=== PATIENT | male | born 1965 | race Caucasian/White ===

== ENCOUNTER 2016-08-06 10:47 | Outpatient (CLI) ==
[2016-05-06 03:38] VITALS: BMI 33.3
[2016-08-06 11:19] LABS: CHOL/HDL RATIO 3.2 (4.5-6.4)
== END 2016-08-06 10:48 | disposition home or self-care (01) ==
LOC: LAB 10:47
PROVIDERS: ATTEND Physician Assistant Medical
DX: E78.5 Hyperlipidemia, unspecified (principal); E11.9 Type 2 diabetes mellitus without complications
CPT/HCPCS: 36415; 80061; 83036

== ENCOUNTER 2016-08-20 10:17 | Outpatient (CLI) ==
[2016-05-06 03:38] VITALS: BMI 33.3
--- NOTE | 2016-08-20 11:22 | CT ---
EXAM: CT lumbar spine without contrast HISTORY: Low back pain COMPARISON: 02/22/2016 TECHNIQUE: CT lumbar spine performed without intravenous contrast. Coronal and sagittal reformatte d images obtained. FINDINGS: There is posterior spinal fusion at L5-S1. Hardware appears intact. There is a 5 mm anterolisthesi s of L5 on S1 that appears unchanged. There is interbody spacer. There is endplate degenerative carola nge L5-S1 that appears unchanged. There is multilevel marginal osteophyte formation. Multilevel lauri inal osteophyte formation. Mild multilevel intervertebral disc space narrowing at the nonoperative levels. Visualized sacroiliac joints intact with mild degenerative change. No fracture. There is a 1.6 cm right adrenal nodule measuring 13 HU. Visualized liver decreased in attenuation. Small hia osvaldo hernia. The aorta and is normal in caliber. Mild posterior subcutaneous scarring/stranding. T12-L1: No central canal or neural foraminal narrowing. L1-L2: Posterior disc osteophyte complex causing mild central canal narrowing. L2-L3: No central canal or neural foraminal narrowing. L3-L4: No central canal or neural foraminal narrowing. L4-L5: Posterior disc osteophyte complex and facet arthrosis causing mild to moderate bilateral neur al foraminal narrowing. Central canal partially obscured due to streak artifact without definite raya tral canal narrowing. L5-S1: Postsurgical change with fusion and right hemilaminectomy. Anterolisthesis. Central canal obs cured secondary to streak artifact without definite central canal narrowing. Posterior disc osteophy te complex and facet arthrosis with probably moderate bilateral neural foraminal narrowing IMPRESSION: 1. Posterior spinal spinal fusion L5-S1. No acute abnormality lumbar spine. Grade 1 anterolisthes is of L5 on S1. 2. Chronic discogenic degenerative disease and facet arthrosis. Please see segmental analysis. 3. 1.6 cm right adrenal nodule MRI 07/22/2013 suggested adrenal nodule and this is probably grossl y unchanged in size, suggesting a benign etiology. 4. Hepatic steatosis
== END 2016-08-20 10:18 | disposition home or self-care (01) ==
LOC: RAD 10:17
PROVIDERS: ATTEND Neurological Surgery
DX: M54.5 Low back pain (principal)

== ENCOUNTER 2017-05-23 14:06 | Outpatient (CLI) ==
[2016-05-06 03:38] VITALS: BMI 33.3
--- NOTE | 2017-05-23 15:18 | CT ---
EXAM: CT of the lumbar spine without contrast History: Lower back pain. Comparison: Lumbar spine CT 08/20/2016 Technique: Multiplanar CT images through the lumbar spine were obtained without the administration o f IV contrast Findings: Stable small right adrenal nodule. Degenerative changes of the bilateral sacroiliac joint s with sclerosis and bridging osteophyte on the right. Stable posterior fusion hardware at L5-S1. Stable grade 1 anterolisthesis of L5 on S1. No acute fra cture. No active subluxation. T12-L1: No significant disc bulge, central canal stenosis or bony neural foraminal narrowing. L1-L2: Small posterior disc osteophyte complex with no significant bony central canal stenosis or [place] neural foraminal narrowing. L2-L3: No significant disc bulge, central canal stenosis or bony neural foraminal narrowing. L3-L4: Small disc bulge effacing the anterior thecal sac with no significant bony central canal sten osis. Mild bilateral bony neural foraminal narrowing secondary to ligamentous and facet hypertrophy. L4-L5: Limited evaluation due to streak artifact from hardware. No significant bony central canal s tenosis. Mild to moderate bilateral bony neural foraminal narrowing secondary to ligamentous and fac et hypertrophy. L5-S1: Limited evaluation due to the streak artifact from hardware. No significant bony central can al stenosis. Moderate to severe bilateral bony neural foraminal narrowing secondary to ligamentous a nd facet hypertrophy, not significantly changed compared to prior study. Impression: 1. No acute osseous abnormality of the lumbar spine. 2. Stable posterior fusion hardware. 3. Stable grade 1 anterolisthesis of L5 on S1. 4. Level by level analysis as detailed above not significantly changed compared to the prior study. 5. Degenerative changes of bilateral sacroiliac joints, not significantly changed compared to the pr ior study. 5. Stable right adrenal adenoma.
== END 2017-05-23 14:07 | disposition home or self-care (01) ==
LOC: RAD 14:06
PROVIDERS: ATTEND Neurological Surgery
DX: M54.5 Low back pain (principal)

== ENCOUNTER 2018-09-26 11:26 | Outpatient (CLI) | payer OTHER ==
[2016-05-06 03:38] VITALS: BMI 33.3
--- NOTE | 2018-09-26 14:31 | DI ---
EXAM: CERVICAL SPINE, 3 VIEWS HISTORY: Degenerative disc disease and neck pain. No scoliosis. Lateral masses of C1 and C2 are normally aligned and the odontoid process is intact. Lateral projections reveal slight reversal of lordosis likely related to patient position. There is no spondylolisthesis or fracture. Mild to moderate degenerative changes mid spine inferiorly. IMPRESSION: 1. Degenerative changes of the lower spine are mild to moderate.
--- NOTE | 2018-09-27 10:45 | MRI ---
MRI of the lumbar spine HISTORY: Low back pain with radiation to both lower extremities, right greater than left. COMPARISON: 09/08/2015. CT 08/20/2016. PROCEDURE: Multiplanar, multisequence MRI protocol including sagittal T1-weighted, sagittal T2-weigh grazyna, sagittal inversion recovery, coronal T2-weighted, axial T1-weighted and axial T2-weighted sequen emelyn. The patient was injected with 20 ml of Dotarem after which additional sagittal and axial images were obtained. FINDINGS: There are five non-rib bearing lumbar vertebrae. The current examination again demonstrate s evidence of previous discectomy and fusion at L5-S1 using transpedicular screws and interconnecting rods and a disc space implant. There is an accompanying right hemilaminectomy. There is a residual approximately 3-4 mm anterolisthesis of L5 with respect to S1. Vertebral alignment demonstrate stra ightening of upper lumbar lordosis and a modest dextroconvex curvature apex at L4-5 which may be posi tional. Vertebral body height is unchanged from the prior examination. Marrow signal is within norm al limits for age. The intervertebral discs are essentially unchanged from prior examination. There is moderate loss of disc height, desiccation and prominent ventral spondylosis at T12-L1 and L1-L2. There is loss of disc height and postsurgical changes at L5-S1. The conus medullaris appears normal in position and configuration and signal. The caliber of the spinal canal is intrinsically within n ormal limits. The prevertebral and paraspinous soft tissues appear to be within normal limits. Post contrast images demonstrate no abnormal enhancement. Segmental analysis: T12-L1: There is a minimal disc bulge at this level. The spinal canal is not significantly narrowed. The subarticular spaces and lateral recesses are not significantly narrowed. The neural foramina a re not stenosed. The conus crosses this level. L1-L2: There is a broad-based disc/osteophyte complex impressing the ventral thecal sac at this level . The spinal canal is not significantly narrowed. The subarticular spaces and lateral recesses are not significantly narrowed. The neural foramina are not stenosed. The conus terminates above this l evel behind the body of L1. L2-L3: There is a minimal broad based disc bulge at this level. The spinal canal is not significantl y narrowed. The subarticular spaces and lateral recesses are not significantly narrowed. The neural foramina are not stenosed. L3-L4: There is a minimal broad-based disc bulge at this level. The spinal canal is not significantl y narrowed. The subarticular spaces and lateral recesses are not significantly narrowed. The neural foramina are not stenosed. L4-L5: There is a minimal broad-based disc bulge at this level. The spinal canal is not significantl y narrowed. The subarticular spaces and lateral recesses are not significantly narrowed. There is m ild right and mild to moderate left foraminal stenosis due to facet arthropathy and disc intrusion. L5-S1: The patient is post discectomy and fusion at this level. The central canal remains patent. T here is modest impression of the right dorsolateral thecal sac associated with facet arthropathy. Th e subarticular spaces and lateral recesses are not significantly narrowed. There is moderate to mode rately severe foraminal stenosis associated with anterolisthesis, loss of disc height, facet arthropa thy and disc/osteophyte intrusion. IMPRESSION: 1. The current examination demonstrates stable postsurgical changes at L5-S1 consisting of discectom y and fusion using transpedicular screws and interconnecting rods and a solitary disc space implant. The patient has had an associated right hemilaminectomy. There is a stable associated grade 1 anter olisthesis. 2. The lumbar vertebrae at the remaining levels are normal in height and signal. There is evidence of loss of disc height, desiccation and spondylosis at T12-L1 and L1-L2. The L2-3 through L4-5 discs appear normal in height and signal. 3. The central canal appears adequately patent at all lumbar levels as seen previously. 4. There is mild right and mild to moderate left foraminal stenosis at L4-5 and moderate to moderate ly severe bilateral foraminal stenosis at L5-S1. Note that the L5-S1 level is partially obscured by susceptibility artifact from the patient's fusion hardware. 5. No abnormal enhancement is identified. 6. Additional details are contained in the report.
== END 2018-09-26 11:27 | disposition home or self-care (01) ==
LOC: RAD 11:26
PROVIDERS: ATTEND Pain Medicine Interventional Pain Medicine
DX: M50.320 Other cervical disc degeneration, mid-cervical region, unspecified level (principal); M50.321 Other cervical disc degeneration at C4-C5 level; M50.322 Other cervical disc degeneration at C5-C6 level; M50.33 Other cervical disc degeneration, cervicothoracic region; M47.812 Spondylosis without myelopathy or radiculopathy, cervical region; M47.813 Spondylosis without myelopathy or radiculopathy, cervicothoracic region; M48.061 Spinal stenosis, lumbar region without neurogenic claudication; M51.36 Other intervertebral disc degeneration, lumbar region; M51.37 Other intervertebral disc degeneration, lumbosacral region; M47.816 Spondylosis without myelopathy or radiculopathy, lumbar region; M47.817 Spondylosis without myelopathy or radiculopathy, lumbosacral region; M96.1 Postlaminectomy syndrome, not elsewhere classified
CPT/HCPCS: 36415; 82565

== ENCOUNTER 2019-01-06 12:16 | Emergency (ER) | payer OTHER ==
[2019-01-06 12:22] VITALS: BP 139/90; TEMP 96.4; BMI 34.3
--- NOTE | 2019-01-06 14:18 | ED.PDOC ---
General ED Provider: Dr. WENDIE FARRELL Chief Complaint: Bite Stated Complaint: 53 y old pleasant gentleman with nk insect bite in scalp parietal area and on left gluteal surface.Partialy secondarily infected,No akllewrgies,Controled dM, Time Seen by Physician: 12:45 Mode of Arrival: Walk-In Information Source: Patient Exam Limitations: No limitations Primary Care Provider: LAUREN MADRIGAL Nursing and Triage Documentation Reviewed and Agree: Yes Does patient meet sepsis criteria?: No System Inflammatory Response Syndrome: Not Applicable Sepsis Protocol: For patient's 13 years and over: Temp is 96.8 and below OR 101 and greater Pulse >90 BPM Resp >20/minute Acutely Altered Mental Status Are patient's symptoms suggestive of a new infection, such as: -Pneumonia -Skin, Soft Tissue -Endocarditis -UTI -Bone, Joint Infection -Implantable Device -Acute Abdominal Infection -Wound Infection -Meningitis -Blood Stream Catheter Infection -Unknown Skin Complaint Exam - Skin/Soft Tissue Complaint/Exam Onset/Duration: last night Symptoms Are: Still present Timing: Constant Initial Severity: Mild Current Severity: Mild Character: Reports: Redness Aggravating: Reports: None Alleviating: Reports: None Associated Signs and Symptoms: Reports: Tenderness Related History: Reports: Similar episode Related Surgical History: Reports: None Recent Exposure to Others w/Similar Symptoms: No Skin Findings: Present: Erythema, Induration, Skin lesion, Pustules Differential Diagnoses: Abscess, Cellulitis Review of Systems - Review Of Systems Constitutional: Reports: No symptoms Eyes: Reports: Decreased acuity Ears, Nose, Mouth, Throat: Reports: No symptoms Respiratory: Reports: No symptoms Cardiac: Reports: No symptoms GI: Reports: No symptoms : Reports: No symptoms Musculoskeletal: Reports: No symptoms Skin: Reports: Rash, Other Neurological: Reports: No symptoms Endocrine: Reports: No symptoms Hematologic/Lymphatic: Reports: No symptoms All Other Systems: Reviewed and Negative Past Medical History - Past Medical History Endocrine: Reports: DM 2, Dyslipidemia Cardiovascular: Reports: Hypertension Respiratory: Reports: None Hematological: Reports: None Gastrointestinal: Reports: None Genitourinary: Reports: None Neuro/Psych: Reports: None Musculoskeletal: Reports: Back Pain, Joint Pain Cancer: Reports: None Other Pertinent Past Medical History: History of Drug abuse and dependece. - Surgical History General Surgical History: Reports: Back Surgery (x 2 ), Other (Right transmetatasal surgery. ) - Family History Family History: Reports: Diabetes - Social History Smoking Status: Current every day smoker Hx Substance Use: No Alcohol Screening: None - Immunizations Tetanus Shot up to Date: Yes Physical Exam - Physical Exam Appearance: Well-appearing Ill-appearing: None Pain Distress: None Eyes: HERBERT, EOMI, Conjunctiva clear ENT: Ears normal, Nose normal, Oropharynx normal Neck: Supple Respiratory: Airway patent, Breath sounds clear, Breath sounds equal Cardiovascular: RRR, Pulses normal, No rub, No murmur GI/: Soft, Nontender, No masses, Bowel sounds normal Musculoskeletal: Normal strength, ROM intact, No edema, No calf tenderness Skin: Warm, Dry, Normal color Neurological: Sensation intact, Motor intact, Reflexes intact, Cranial nerves intact, Alert, Oriented Psychiatric: Affect appropriate Critical Care Note - Critical Care Note Total Time (mins): 0 Course - Course Vital Signs: Temp Pulse Resp BP Pulse Ox 01/06/19 12:17 96.4 F L 74 16 139/90 93 L Departure - Departure Time of Disposition: 14:21 Disposition: HOME SELF-CARE Discharge Problem: Insect bite Instructions: Cellulitis (ED) Condition: Good Pt referred to PMD for follow-up: Yes IPMP verified?: No Additional Instructions: Doxycycline 100 mg bid x 10 days.Silvadene 1% cream tid x 5 days Allergies/Adverse Reactions: Allergies ibuprofen Adverse Reaction (Verified 01/06/19 13:34) ketorolac tromethamine [From Toradol] Adverse Reaction (Verified 01/06/19 13:34) Home Medications: Ambulatory Orders Aspirin [Aspirin EC] 81 mg PO DAILYWM 01/01/15 Lisinopril [Zestril] 60 mg PO DAILY 01/01/15 Metformin HCl [Fortamet] 500 mg PO BID 01/01/15 [place]-3 Fatty Acids/Fish Oil [Fish Oil 1,000 mg Capsule] 1 each PO DAILY Gemfibrozil [Lopid] 600 mg PO BID 02/22/16 Buspirone HCl [Buspar] 15 mg PO TID 01/06/19 Trazodone HCl 150 mg PO BEDTIME 01/06/19 Disposition Discussed With: Patient
== END 2019-01-06 14:30 | disposition home or self-care (01) ==
LOC: ED 12:16
DX: S30.860A Insect bite (nonvenomous) of lower back and pelvis, initial encounter (principal); S00.06XA Insect bite (nonvenomous) of scalp, initial encounter; W57.XXXA Bitten or stung by nonvenomous insect and other nonvenomous arthropods, initial encounter; F17.210 Nicotine dependence, cigarettes, uncomplicated
CPT/HCPCS: 99282

== ENCOUNTER 2019-01-09 12:19 | Emergency (ER) | payer OTHER ==
[2019-01-09 12:30] VITALS: BP 156/102; TEMP 97.2; BMI 36.0
--- NOTE | 2019-01-09 13:40 | CT ---
EXAM: CT of the abdomen pelvis without contrast History: Abdominal pain and constipation. Technique: Multiplanar CT images through the abdomen pelvis were obtained without the administration of IV contrast Findings: Lung bases are clear. No acute osseous abnormalities. Posterior fusion hardware at L5-S1 is grossly intact. Status post cholecystectomy. No focal liver or splenic lesions. No peripancreatic inflammation. Le ft adrenal gland is within normal limits. The 1.8 cm indeterminate right adrenal nodule. Stomach is mild to moderately distended with fluid. The a few mildly dilated fluid-filled loops of small bowel seen within the left upper quadrant of the abdomen. The appendix is not seen. Bladder is not well distended. Prostate is not enlarged. Moderate stool seen distending the rectosigmoid colon. No dacia e air and no ascites. No renal stones and no hydronephrosis. No abdominal aortic aneurysm. No path ologically enlarged lymph nodes. Impression: 1. Probable mild gastroenteritis. 2. The mildly dilated loops of small bowel are probably related to the enteritis. Early developing small bowel obstruction is considered less likely but not excluded. 3. Moderate stool seen distending the rectosigmoid colon
--- NOTE | 2019-01-09 13:45 | ED.PDOC ---
General ED Provider: Dr. JANAE STRANGE Chief Complaint: Constipation Stated Complaint: constipation x 1 day Time Seen by Physician: 12:30 Mode of Arrival: Walk-In Information Source: Patient Exam Limitations: No limitations Primary Care Provider: LAUREN MADRIGAL Nursing and Triage Documentation Reviewed and Agree: Yes Does patient meet sepsis criteria?: No System Inflammatory Response Syndrome: Not Applicable Sepsis Protocol: For patient's 13 years and over: Temp is 96.8 and below OR 101 and greater Pulse >90 BPM Resp >20/minute Acutely Altered Mental Status Are patient's symptoms suggestive of a new infection, such as: -Pneumonia -Skin, Soft Tissue -Endocarditis -UTI -Bone, Joint Infection -Implantable Device -Acute Abdominal Infection -Wound Infection -Meningitis -Blood Stream Catheter Infection -Unknown GI Complaint Exam - Abdominal Pain Complaint/Exam Onset: Gradual Duration: 1 day Symptoms Are: Still present Timing: Intermittent Initial Severity: Moderate Current Severity: Mild Location of Pain: Diffuse Radiates To: Denies: Chest, Back, Flank, LLQ, RLQ, Inguinal Character: Reports: Dull Review of Systems - Review Of Systems Constitutional: Reports: No symptoms Eyes: Reports: No symptoms Ears, Nose, Mouth, Throat: Reports: No symptoms Respiratory: Reports: No symptoms Cardiac: Reports: No symptoms GI: Reports: Constipated : Reports: No symptoms Musculoskeletal: Reports: No symptoms Skin: Reports: No symptoms Neurological: Reports: No symptoms Endocrine: Reports: No symptoms Hematologic/Lymphatic: Reports: No symptoms All Other Systems: Reviewed and Negative Past Medical History - Past Medical History Endocrine: Reports: DM 2, Dyslipidemia Cardiovascular: Reports: Hypertension Respiratory: Reports: None Hematological: Reports: None Gastrointestinal: Reports: None Genitourinary: Reports: None Neuro/Psych: Reports: None Musculoskeletal: Reports: Back Pain, Joint Pain Cancer: Reports: None Other Pertinent Past Medical History: History of Drug abuse and dependece. - Surgical History General Surgical History: Reports: Back Surgery (x 2 ), Other (Right transmetatasal surgery. ) - Family History Family History: Reports: Diabetes - Social History Smoking Status: Current every day smoker, Light tobacco smoker Hx Substance Use: No Alcohol Screening: Occasionally Physical Exam - Physical Exam Appearance: Well-appearing, No pain distress, Well-nourished Eyes: HERBERT, EOMI, Conjunctiva clear ENT: Ears normal, Nose normal, Oropharynx normal Respiratory: Airway patent, Breath sounds clear, Breath sounds equal, Respirations nonlabored Cardiovascular: RRR, Pulses normal, No rub, No murmur GI/: Soft, Nontender, No masses, Bowel sounds normal, No Organomegaly Musculoskeletal: Normal strength, ROM intact, No edema, No calf tenderness Skin: Warm, Dry, Normal color Neurological: Sensation intact, Motor intact, Reflexes intact, Cranial nerves intact, Alert, Oriented Psychiatric: Affect appropriate, Mood appropriate Interpretation - Radiology Interpretation Radiology Interpretation By: Radiologist Radiology Results: No acute changes Critical Care Note - Critical Care Note Total Time (mins): 0 Course - Course Orders, Labs, Meds: Orders Category Date Time Status CT ABDOMEN/PELVIS WO CONTRAST Stat RADS 01/09/19 12:38 Completed Vital Signs: Temp Pulse Resp BP Pulse Ox 01/09/19 12:23 97.2 F L 87 20 156/102 H 92 L Departure - Departure Time of Disposition: 13:49 Disposition: HOME SELF-CARE Discharge Problem: Constipation Instructions: Constipation (ED) Condition: Good Pt referred to PMD for follow-up: Yes IPMP verified?: No Additional Instructions: Please call your Family Physician as soon as possible to schedule a follow-up appointment. Allergies/Adverse Reactions: Allergies ibuprofen Adverse Reaction (Verified 01/09/19 12:30) ketorolac tromethamine [From Toradol] Adverse Reaction (Verified 01/09/19 12:30) Home Medications: Ambulatory Orders Aspirin [Aspirin EC] 81 mg PO DAILYWM 01/01/15 Lisinopril [Zestril] 60 mg PO DAILY 01/01/15 Metformin HCl [Fortamet] 500 mg PO BID 01/01/15 [place]-3 Fatty Acids/Fish Oil [Fish Oil 1,000 mg Capsule] 1 each PO DAILY Gemfibrozil [Lopid] 600 mg PO BID 02/22/16 Buspirone HCl [Buspar] 15 mg PO TID 01/06/19 Trazodone HCl 150 mg PO BEDTIME 01/06/19
== END 2019-01-09 14:00 | disposition home or self-care (01) ==
LOC: ED 12:19
DX: K59.00 Constipation, unspecified (principal); F17.210 Nicotine dependence, cigarettes, uncomplicated
CPT/HCPCS: 99282

== ENCOUNTER 2019-03-16 09:45 | Emergency (ER) ==
[2019-03-16 09:50] VITALS: BP 135/71; TEMP 98.2; BMI 33.7
--- NOTE | 2019-03-16 11:09 | CT ---
EXAM: CT left wrist without contrast HISTORY: Pain from fall COMPARISON: None TECHNIQUE: CT left wrist performed without intravenous contrast. Coronal and sagittal reformatted i mages obtained. FINDINGS: No acute fracture or dislocation. Surgical anchor in the navicular. Metallic density in the hamate is also likely postsurgical. Metallic density in the articulation between the navicular a nd the radius, likely postsurgical. Remodeling changes of the lunate may be degenerative or due to p rior trauma. Several well marginated ossifications about the wrist may be due to degenerative or due to prior trauma. Cystic changes throughout the bones of the wrist, greatest in the capitate and patt ate that are probably degenerative. Remodeling changes at the articulation of the capitate and lunat e may be degenerative and/or to old trauma. Remodeling change of the distal radius are probably dege nerative. Narrowing of the radiocarpal articulations. Osteophyte formation distal radius. Mild ost eoarthritis first MTP joint with joint space narrowing osteophyte formation. IMPRESSION: 1. No acute fracture or dislocation. 2. Chronic, postsurgical, and an degenerative changes in the wrist.
--- NOTE | 2019-03-16 11:47 | ED.PDOC ---
General ED Provider: Dr. JANAE STRANGE Chief Complaint: Wrist Pain/Injury Stated Complaint: left wrist injury Time Seen by Physician: 10:00 Mode of Arrival: Walk-In Information Source: Patient Exam Limitations: No limitations Primary Care Provider: STEPHANIE BOYCE Nursing and Triage Documentation Reviewed and Agree: Yes Does patient meet sepsis criteria?: No System Inflammatory Response Syndrome: Not Applicable Sepsis Protocol: For patient's 13 years and over: Temp is 96.8 and below OR 101 and greater Pulse >90 BPM Resp >20/minute Acutely Altered Mental Status Are patient's symptoms suggestive of a new infection, such as: -Pneumonia -Skin, Soft Tissue -Endocarditis -UTI -Bone, Joint Infection -Implantable Device -Acute Abdominal Infection -Wound Infection -Meningitis -Blood Stream Catheter Infection -Unknown Musculoskeletal Complaint Exam - Hand/Wrist Complaint/Exam Location of Pain: Reports: Left, Hand, Wrist Mechanism of Injury: Reports: Other (foosh mechanism) Onset/Duration: 1 day Symptoms Are: Still present Onset of Pain: Reports: Hours Initial Severity: Mild Current Severity: Mild Location: Reports: Discrete Character: Reports: Aching Alleviating: Reports: Rest, Elevation Aggravating: Reports: Movement Associated Signs and Symptoms: Denies: Swelling, Redness, Bruising, Fever, Weakness, Numbness, Tingling Related History: Reports: Similar episode Dominant Hand: Right Related Surgical History: Reports: None Hand/Wrist Findings: Absent: Ecchymosis, Abnormal contour, Rotation, Ligamentous instability, Tinel's Sign, Phalen's Sign Tenderness: Present: Radius, Ulna Differential Diagnoses: Closed Fracture, Sprain, Strain Review of Systems - Review Of Systems Constitutional: Reports: No symptoms Eyes: Reports: No symptoms Ears, Nose, Mouth, Throat: Reports: No symptoms Respiratory: Reports: No symptoms Cardiac: Reports: No symptoms GI: Reports: No symptoms : Reports: No symptoms Musculoskeletal: Reports: Joint pain (wrist) Skin: Reports: No symptoms Neurological: Reports: No symptoms Endocrine: Reports: No symptoms Hematologic/Lymphatic: Reports: No symptoms All Other Systems: Reviewed and Negative Past Medical History - Past Medical History Previously Healthy: Yes Endocrine: Reports: DM 2, Dyslipidemia Cardiovascular: Reports: Hypertension Respiratory: Reports: None Hematological: Reports: None Gastrointestinal: Reports: None Genitourinary: Reports: None Neuro/Psych: Reports: None Musculoskeletal: Reports: Back Pain, Joint Pain Cancer: Reports: None Other Pertinent Past Medical History: History of Drug abuse and dependece. - Surgical History General Surgical History: Reports: Back Surgery (x 2 ), Other (Right transmetatasal surgery. ) - Family History Family History: Reports: Diabetes - Social History Smoking Status: Current every day smoker, Light tobacco smoker Hx Substance Use: No Alcohol Screening: Occasionally - Immunizations Tetanus Shot up to Date: Yes Physical Exam - Physical Exam Appearance: Well-appearing, No pain distress, Well-nourished Eyes: HERBERT, EOMI, Conjunctiva clear ENT: Ears normal, Nose normal, Oropharynx normal Respiratory: Airway patent, Breath sounds clear, Breath sounds equal, Respirations nonlabored Cardiovascular: RRR, Pulses normal, No rub, No murmur GI/: Soft, Nontender, No masses, Bowel sounds normal, No Organomegaly Musculoskeletal: Limited ROM (left wrist) Skin: Warm, Dry, Normal color Neurological: Sensation intact, Motor intact, Reflexes intact, Cranial nerves intact, Alert, Oriented Psychiatric: Affect appropriate, Mood appropriate Interpretation - Radiology Interpretation Radiology Interpretation By: Radiologist Radiology Results: No acute changes Exam Interpreted: CT Scan (DJD) Critical Care Note - Critical Care Note Total Time (mins): 0 Course - Course Orders, Labs, Meds: Orders Category Date Time Status CT WRIST LEFT WITHOUT CONTRAST Stat RADS 03/16/19 10:05 Completed Vital Signs: Temp Pulse Resp BP Pulse Ox 03/16/19 09:46 98.2 F 73 18 135/71 97 Departure - Departure Time of Disposition: 11:46 Disposition: HOME SELF-CARE Discharge Problem: Pain in wrist, Injury of wrist Sprain of wrist, left Qualifiers: Encounter type: initial encounter Qualified Code(s): S63.502A - Unspecified sprain of left wrist, initial encounter Instructions: Wrist Injury (ED) Condition: Good Pt referred to PMD for follow-up: Yes IPMP verified?: No Additional Instructions: Please call your Family Physician as soon as possible to schedule a follow-up appointment. Allergies/Adverse Reactions: Allergies ibuprofen Adverse Reaction (Verified 03/16/19 09:54) ketorolac tromethamine [From Toradol] Adverse Reaction (Verified 03/16/19 09:54) Home Medications: Ambulatory Orders Aspirin [Aspirin EC] 81 mg PO DAILYWM 01/01/15 Lisinopril [Zestril] 60 mg PO DAILY 01/01/15 Mallory-3 Fatty Acids/Fish Oil [Fish Oil 1,000 mg Capsule] 1 each PO DAILY Gemfibrozil [Lopid] 600 mg PO BID 02/22/16 Buspirone HCl [Buspar] 15 mg PO TID 01/06/19 Trazodone HCl 150 mg PO BEDTIME 01/06/19 Sitagliptin Phos/Metformin HCl [Janumet 50-500 mg Tablet] 1 each PO DAILY
== END 2019-03-16 11:53 | disposition home or self-care (01) ==
LOC: ED 09:45
DX: S63.502A Unspecified sprain of left wrist, initial encounter (principal); F17.210 Nicotine dependence, cigarettes, uncomplicated
CPT/HCPCS: 99283